=== PATIENT | female | born 1945 | race Caucasian/White ===

== ENCOUNTER → 2023-05-30 | Outpatient (CLI) | payer MEDICARE, OTHER | END | disposition home or self-care (01) | LOC: RESCLI 13:31 | PROVIDERS: ATTEND Internal Medicine | DX: E78.1 Pure hyperglyceridemia (principal); I10 Essential (primary) hypertension; L71.9 Rosacea, unspecified; I25.10 Atherosclerotic heart disease of native coronary artery without angina pectoris; K59.00 Constipation, unspecified; Z79.899 Other long term (current) drug therapy; Z98.890 Other specified postprocedural states; Z88.8 Allergy status to other drugs, medicaments and biological substances ==